=== PATIENT | male | born 1970 | race Caucasian/White ===

== ENCOUNTER → 2016-12-25 | Outpatient (CLI) | payer OTHER ==
[~2016-12-25] VITALS: Ht 190.5 cm; Wt 86.7 kg
[~2016-12-25] MED LIST: CETI10CH PO; EPP3 IM
[2016-12-25 16:08] VITALS: BP 125/75; PULSE 75; Ht 190.5 cm; Wt 86.7 kg
== END | disposition home or self-care (01) ==
LOC: C.NEUR 14:15
PROVIDERS: ATTEND Internal Medicine Pulmonary Disease
DX: G47.33 Obstructive sleep apnea (adult) (pediatric) (principal)

== ENCOUNTER → 2017-01-19 | Outpatient (CLI) | payer OTHER ==
--- NOTE | 2017-01-24 08:14 | Sleep Study ---
Sleep Study Report Date of Service: 01/19/2017 Sleep Study Report Clinical data: Patient is a 46-year-old male with a BMI of 23.27. He is referred for a sleep study because of symptoms of snoring and observed apneas. His [place] score is 4 out of a possible 24. On the evening of 01/19/2017 the patient had a home sleep apnea test performed using the Yakov type 3 monitor. Recording results: Total recording time was 10 hours. Patient estimated sleep time was 6.8 hours. Respiratory data: The patient had a total of 26 respiratory events including 2 obstructive apneas , 3 mixed apneas, 4 central apneas, and 17 hypopneas. The longest respiratory event was 27 seconds. The MAHESH was 3.8 events per hour. This would reflect no significant sleep apnea. Oximetry data: The mean oxygen saturation for the night was 94 percent. The minimum saturation was 88 percent. There was less than 1 minute with saturations less than 89 percent. Heart rate data: The lowest heart rate was 38 beats per minute. The mean heart rate was 48 beats per minute. Snoring data: Snoring was present often on during the study. Impressions: 1. No evidence of significant obstructive sleep apnea 2. Primary snoring Recommendations: 1. It would be advised that the patient avoid sleeping in the supine position. Typically there is more snoring and respiratory events when supine. 2. The patient's history is that he averages between 4.5 and 5 hours of sleep time per night. It is suggested that he increase his sleep time to approximately 7.5 hours per night. Copies To 1: Chin Mancini DO; Dhiraj Renee M.D.
== END | disposition home or self-care (01) ==
LOC: C.NEUR 08:20
PROVIDERS: ATTEND Internal Medicine Pulmonary Disease
DX: G47.33 Obstructive sleep apnea (adult) (pediatric) (principal)

== ENCOUNTER → 2017-01-29 | Outpatient (CLI) | payer OTHER ==
[~2017-01-29] VITALS: Ht 190.5 cm; Wt 87.6 kg
[2017-01-29 10:51] VITALS: BP 128/75; PULSE 56; Ht 190.5 cm; Wt 87.6 kg
== END | disposition home or self-care (01) ==
LOC: C.NEUR 09:48
PROVIDERS: ATTEND Internal Medicine Pulmonary Disease
DX: G47.30 Sleep apnea, unspecified (principal); J34.2 Deviated nasal septum; R00.1 Bradycardia, unspecified; R06.83 Snoring

== ENCOUNTER → 2017-02-26 | Outpatient (CLI) | payer OTHER ==
[2017-02-26 11:10] LABS: HEMATOCRIT 46.2 % (42-52); MEAN CELL VOLUME 94.9 fL (80-100); MEAN CORPUSCULAR HEMOGLOBIN 31.8 pg (25-34); MEAN CORPUSCULAR HGB CONC 33.5 g/dl (32-36); MEAN PLATELET VOLUME 10.2 fL (7.4-10.4); PLATELET COUNT 269 K/uL (130-400); RED BLOOD COUNT 4.87 M/uL (4.7-6.1); WHITE BLOOD COUNT 7.38 K/uL (4.8-10.8)
[2017-02-26 11:32] LABS: ALT/SGPT 39 U/L (12-78); BLOOD UREA NITROGEN 21 mg/dl (7-18); BUN/CREATININE RATIO 21.8 (10-20); CALCIUM 9.4 mg/dl (8.5-10.1); CARBON DIOXIDE 29 mmol/L (21-32); CHLORIDE 106 mmol/L (98-107); CHOLESTEROL 167 mg/dl (0-200); CREATININE 0.95 mg/dl (0.60-1.40); GLUCOSE 91 mg/dl (70-99); POTASSIUM 4.1 mmol/L (3.5-5.1); SODIUM 139 mmol/L (136-145)
[2017-02-26 11:35] LABS: ALB/GLOB RATIO 0.9 (0.9-2); ALKALINE PHOSPHATASE 59 U/L (45-117); AST/SGOT 31 U/L (15-37); CHOLESTEROL/HDL RATIO 1.9; HDL CHOLESTEROL 86 mg/dl; LDL CHOLESTEROL CALCULATED 72 mg/dl; TRIGLYCERIDES 43 mg/dl (0-150); VERY LOW DENSITY LIPOPROT CALC 9 mg/dl
== END | disposition home or self-care (01) ==
LOC: C.LABBC 07:58
PROVIDERS: ATTEND Internal Medicine
DX: Z00.00 Encounter for general adult medical examination without abnormal findings (principal)